=== PATIENT | female | born 1985 | race Caucasian/White ===

== ENCOUNTER 2017-11-11 20:46 | Emergency (ER) | payer SELFPAY ==
--- NOTE | 2017-11-11 20:57 | ED Physician Documentation ---
General Adult - HISTORIAN Historian: patient - HPI Stated Complaint: chest pain Chief Complaint: General Adult Onset: hours Timing: still present Severity: moderate Further Comments: yes (Pt is a 31 yo female with c/o chest pain. Pt says pain is in mid chest and also in lower abd. Pt denies dysuria. No n/v, diaphoresis , sob. Pt has been lightheaded. Pt says she has a hx GERD during and says she could be .) - ROS CONST: weakness EYES/ENT: none CVS/RESP: chest pain GI/: abdominal pain (lower abd pain) MS/SKIN/LYMPH: none - PAST HX Past History: hypertension Allergies/Adverse Reactions: Allergies Allergy/AdvReac Type Severity Reaction Status Date / Time Penicillins Allergy Mild Verified 11/11/17 21:05 Home Medications: Ambulatory Orders Medication Instructions Recorded Lisinopril 20 mg PO DAILY 11/11/17 - SOCIAL HX Smoking History: cigarettes - FAMILY HX Family History: No - REVIEWED ASSESSMENTS Nursing Assessment Reviewed: Yes Vitals Reviewed: Yes Progress - Progress Progress: NS 1 L IVF GI cocktail improved OTC pepcid/zantac prn General Adult Physical Exam - PHYSICAL EXAM GENERAL APPEARANCE: moderate distress EENT: pharynx normal, other (poor dentition) NECK: normal inspection, supple RESPIRATORY: no resp distress, chest non-tender, breath sounds normal CVS: reg rate & rhythm, heart sounds normal ABDOMEN: soft, normal bowel sounds, other (lower abd tenderness, diffuse) BACK: normal inspection, no CVA tenderness SKIN: warm/dry, normal color EXTREMITIES: non-tender, normal range of motion, no evidence of injury, no edema NEURO: oriented X3, motor nml, sensation nml Discharge Clincal Impression: GERD (gastroesophageal reflux disease) Qualifiers: Esophagitis presence: esophagitis presence not specified Qualified Code(s): K21.9 - Gastro-esophageal reflux disease without esophagitis Referrals: Primary Doctor,No [Primary Care Provider] - Condition: Good Disposition: 01 HOME, SELF-CARE Decision to Admit: NO Decision Time: 22:55
[2017-11-11] MEDS: 0.9 % SODIUM CHLORIDE 1,000 ML IV ONE (21:05)
[2017-11-11 21:11] LABS: BASOPHILS % 0.7 (0.0-1.5); EOSINOPHILS % 2.3 % (0.0-6.8); MEAN CORPUSCULAR HEMOGLOBIN 29.8 pg (28.0-34.0); MEAN CORPUSCULAR VOLUME 90.5 fl (80.0-100.0); MONOCYTES % 5.9 % (0.0-11.0); NEUTROPHILS # 3.6 # k/uL (1.4-7.7)
[2017-11-11 21:35] LABS: eGFR (African) > 60; eGFR (Non-African) > 60
--- NOTE | 2017-11-11 22:08 | Diagnostic Imaging Report ---
CARLOS WIGGINS [facility] [id number] [facility] [address] 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 Physician: CARLOS WIGGINS PA and lateral chest CLINICAL HISTORY: Chest pain for 2 days. FINDINGS: Examination of the chest PA and lateral views with no prior film for comparison demonstrates the lungs to be clear. Cardiovascular and mediastinal silhouettes are within normal limits. Monitor leads superimpose the chest. IMPRESSION: Negative chest. Electronically signed on Nov 11, 2017 10:06:35 PM COMPOSING MACHINE OPERATOR by: Zeus DEL VALLE
[2017-11-11] MEDS: Lidocaine 2%Visc 15ml 20 MG/ML UDC ONE (22:27)
[2017-11-11] MEDS: MAG HYDROX/AL HYDROX/SIMETH 30 ML, Lidocaine 2%Visc 15ml 20 MG, PHENobarb/HYOSCY/ATROPI... PO ONE ×3 (22:27)
[2017-11-11] MEDS: MAG HYDROX/AL HYDROX/SIMETH 30 ML UDC PO ONE (22:27)
[2017-11-11 23:27] VITALS: BP 102/81
[2017-11-12 08:12] LABS: APPEARANCE,URINE CLEAR (CLEAR); COLOR,URINE YELLOW (YELLOW); OCCULT BLOOD,URINE NEGATIVE (NEGATIVE); UROBILINOGEN URINE 0.2 Eu (0.2-1.0)
== END 2017-11-11 22:50 | disposition home or self-care (01) ==
LOC: ED 20:46
DX: K21.9 Gastro-esophageal reflux disease without esophagitis (principal)
CPT/HCPCS: 71046; 80053; 81002; 81025; 82550; 83690; 84484; 85025; 93005; A9270; J7030; 96365; 99282; 99283; S1016